=== PATIENT | male | born 1965 | race Caucasian/White ===

== ENCOUNTER 2017-03-29 14:26 | Emergency (ER) | payer SELFPAY ==
[2017-03-29] MEDS ORDERED: Nicotine GUM* 2 MG PO PRN (16:07)
[2017-03-29 16:14] LABS: Hematocrit 45 % (42-52); Hemoglobin 15.3 g/dl (14.0-18.0); Mean Corpuscular HGB Conc 34 g/dl (31-36); Mean Corpuscular Hemoglobin 34 pg (27-31); Mean Corpuscular Volume 99 fL (80-94); Mean Platelet Volume 7 um3 (7.4-10.4); Red Blood Count 4.55 10^6/ul (4.0-5.4); Red Cell Distribution Width 14 % (10.5-15)
[2017-03-29] MEDS ORDERED: Nicotine GUM* 2 MG ONE (16:16)
[2017-03-29 16:40] LABS: Urine Bilirubin Negative (Negative); Urine Glucose Negative (Negative); Urine Nitrite Negative (Negative)
[2017-03-29 16:43] LABS: ALT 50 U/L (7-52); AST 101 U/L (13-39); Albumin 4.5 g/dL (3.2-5.2); Alkaline Phosphatase 51 U/L (34-104); Anion Gap 7 mmol/L (2-11); BUN/Creatinine Ratio 8.5 (8-20); Blood Urea Nitrogen 5 mg/dL (6-24); CO2 Carbon Dioxide 27 mmol/L (22-32); Calcium 9.3 mg/dL (8.6-10.3); Chloride 106 mmol/L (101-111); EGFR African American 187.8 (>60); Globulin 3.9 g/dL (2-4); Glucose 98 mg/dL (70-100); Magnesium 2.2 mg/dL (1.9-2.7); Sodium 140 mmol/L (133-145); Total Protein 8.4 g/dL (6.4-8.9)
[2017-03-29 16:44] LABS: Acetaminophen < 15 mcg/mL; Salicylate < 2.50 mg/dL (<30)
[2017-03-29 16:44] LABS: Benzodiazepine Urine Screen None Detected (None Detect)
[2017-03-29 16:47] LABS: Alcohol 463 mg/dL (<10)
[2017-03-29] MEDS ORDERED: chlordiazePOXIDE CAP* 25 MG PO ONE (17:18)
--- NOTE | 2017-03-29 19:22 | ED ---
Substance Abuse/Use - HPI Summary HPI Summary: Patient presents to the with family. He is requesting a detox. Patient is a long-time alcoholic and last day he has NOT had alcohol was over 1 year ago. Drinks more than 12 pack per night. He arrives with bruising to the left jain and conjunctival injection of the left eye. He is also noting pain in his left ribs but is unsure if he fell. He does not remember many days and states that he is confused often. Notes to confusion and agitation at baseline. He has tried to previously quit alcohol and began to have some DT's as well as shakiness and worsening agitation. He was at that time brought into the ED and given a medication. He does not recall the medication. He used it for one day and began to drink again shortly after. He is requesting help and is wanting to go into a rehab [facility]. Good support of family. He denies any physical pain besides the left ribs. Denies drug use. Denies SI/HI. - History Of Current Complaint Chief Complaint: EDDetoxRequest Stated Complaint: DETOX Time Seen by Provider: 03/29/17 15:01 Hx Obtained From: Patient Overdose Characteristics: Oral Timing Of Abuse: Daily Severity Initially: Moderate Severity Currently: Moderate Associated Signs And Symptoms: Confused, Intentional Ingestion Related Hx: Drug/Alcohol Last Used @ - 1 hour prior to arrival, Prior Drug Abuse Counseling/Admission - Risk Factor(s) Completed Suicide Risk Factors: Male, [place] - Allergies/Home Medications Allergies/Adverse Reactions: Allergies Allergy/AdvReac Type Severity Reaction Status Date / Time No Known Allergies Allergy Verified 06/07/14 21:18 PMH/Surg Hx/FS Hx/Imm Hx Previously Healthy: Yes Endocrine/Hematology History: Denies: Hx Diabetes Cardiovascular History: Denies: Hx Congestive Heart Failure, Hx Hypertension History: Reports: Hx Renal Disease - hx right kidney cyst - Surgical History Surgery Procedure, Year, and Place: ABD HERNIA REPAIR - Immunization History Hx Pertussis Vaccination: No Immunizations Up to Date: Unable to Obtain/Confirm Infectious Disease History: No Infectious Disease History: Denies: Traveled Outside the [place] in Last 30 Days - Social History Occupation: Unemployed Lives: Alone Alcohol Use: None Alcohol Amount: 12 pack a day "at least" and hard alcohol "occassionally" Hx Substance Use: Yes Substance Use Type: Reports: Marijuana Hx Tobacco Use: Yes Smoking Status (MU): Heavy Every Day Tobacco Smoker Review of Systems Constitutional: Negative Eyes: Negative Cardiovascular: Negative Respiratory: Negative Genitourinary: Negative Positive: no symptoms reported, see HPI Musculoskeletal: Negative Positive: Slurred Speech Psychological: Normal All Other Systems Reviewed And Are Negative: Yes Physical Exam Triage Information Reviewed: Yes Vital Signs On Initial Exam: Initial Vitals BP 138/94 03/29/17 14:58 Vital Signs Reviewed: Yes Appearance: Positive: Well-Appearing, Well-Nourished Skin: Positive: Warm, Skin Color Reflects Adequate Perfusion Head/Face: Positive: Normal Head/Face Inspection Eyes: Positive: EOMI, SANTOS, Conjunctiva Clear Neck: Positive: Supple, No Lymphadenopathy Respiratory/Lung Sounds: Positive: Clear to Auscultation, Breath Sounds Present Musculoskeletal: Positive: Normal, Strength/ROM Intact Neurological: Positive: Alert, Oriented to Person Place, Time, Slurred Speech Psychiatric: Positive: Normal AVPU Assessment: Alert - [place] Coma Scale Coma Scale Total: 15 Diagnostics - Vital Signs Vital Signs Temp Pulse Resp BP Pulse Ox 03/29/17 18:30 115 124/85 97 03/29/17 18:00 98 124/82 97 03/29/17 17:47 16 03/29/17 17:30 108/73 03/29/17 17:28 125 96 03/29/17 17:00 98 106/71 95 03/29/17 16:30 94 116/81 95 03/29/17 16:02 98 94 03/29/17 16:00 119/106 03/29/17 15:56 95 95 03/29/17 15:30 93 122/85 93 03/29/17 15:00 104 96 03/29/17 14:59 98.4 F 110 16 138/94 97 03/29/17 14:58 138/94 - Laboratory Lab Results: Lab Results 03/29/17 03/29/17 03/29/17 Range/Units 15:22 15:22 16:00 WBC (3.5-10.8) 10^3/ul RBC (4.0-5.4) 10^6/ul Hgb (14.0-18.0) g/dl Hct (42-52) % MCV (80-94) fL MCH (27-31) pg MCHC (31-36) g/dl RDW (10.5-15) % Plt Count (150-450) 10^3/ul MPV (7.4-10.4) um3 Neut % (Auto) (38-83) % Lymph % (Auto) (25-47) % Henry % (Auto) (1-9) % Eos % (Auto) (0-6) % Baso % (Auto) (0-2) % Absolute Neuts (auto) (1.5-7.7) 10^3/ul Absolute Lymphs (auto) (1.0-4.8) 10^3/ul Absolute Monos (auto) (0-0.8) 10^3/ul Absolute Eos (auto) (0-0.6) 10^3/ul Absolute Basos (auto) (0-0.2) 10^3/ul Absolute Nucleated RBC 10^3/ul Nucleated RBC % Sodium 140 (133-145) mmol/L Potassium 4.0 (3.5-5.0) mmol/L Chloride 106 (101-111) mmol/L Carbon Dioxide 27 (22-32) mmol/L Anion Gap 7 (2-11) mmol/L BUN 5 L (6-24) mg/dL Creatinine 0.59 L (0.67-1.17) mg/dL Est GFR ( Amer) 187.8 (>60) Est GFR (Non-Af Amer) 146.0 (>60) BUN/Creatinine Ratio 8.5 (8-20) Glucose 98 (70-100) mg/dL Lactic Acid (0.5-2.0) mmol/L Calcium 9.3 (8.6-10.3) mg/dL Magnesium 2.2 (1.9-2.7) mg/dL Total Bilirubin 0.40 (0.2-1.0) mg/dL AST 101 H (13-39) U/L ALT 50 (7-52) U/L Alkaline Phosphatase 51 (34-104) U/L Troponin I 0.00 (<0.04) ng/mL Total Protein 8.4 (6.4-8.9) g/dL Albumin 4.5 (3.2-5.2) g/dL Globulin 3.9 (2-4) g/dL Albumin/Globulin Ratio 1.2 (1-3) Urine Color Colorless Urine Appearance Clear Urine pH 7.0 (5-9) Ur Specific [place] 1.002 L (1.010-1.030) Urine Protein Negative (Negative) Urine Ketones Negative (Negative) Urine Blood Negative (Negative) Urine Nitrate Negative (Negative) Urine Bilirubin Negative (Negative) Urine Urobilinogen Negative (Negative) Ur Leukocyte Esterase Negative (Negative) Urine Glucose Negative (Negative) Salicylates < 2.50 (<30) mg/dL Urine Opiates Screen None detected (None Detect) Acetaminophen < 15 mcg/mL Ur Barbiturates Screen None detected (None Detect) Ur Phencyclidine Scrn None detected (None Detect) Ur Amphetamines Screen None detected (None Detect) U Benzodiazepines Scrn None detected (None Detect) Urine Cocaine Screen None detected (None Detect) U Cannabinoids Screen None detected (None Detect) Serum Alcohol 463 H* (<10) mg/dL 03/29/17 03/29/17 Range/Units 16:00 16:00 WBC 4.0 (3.5-10.8) 10^3/ul RBC 4.55 (4.0-5.4) 10^6/ul Hgb 15.3 (14.0-18.0) g/dl Hct 45 (42-52) % MCV 99 H (80-94) fL MCH 34 H (27-31) pg MCHC 34 (31-36) g/dl RDW 14 (10.5-15) % Plt Count 100 L (150-450) 10^3/ul MPV 7 L (7.4-10.4) um3 Neut % (Auto) 45.7 (38-83) % Lymph % (Auto) 37.1 (25-47) % Henry % (Auto) 13.3 H (1-9) % Eos % (Auto) 0.8 (0-6) % Baso % (Auto) 3.1 H (0-2) % Absolute Neuts (auto) 1.8 (1.5-7.7) 10^3/ul Absolute Lymphs (auto) 1.5 (1.0-4.8) 10^3/ul Absolute Monos (auto) 0.5 (0-0.8) 10^3/ul Absolute Eos (auto) 0 (0-0.6) 10^3/ul Absolute Basos (auto) 0.1 (0-0.2) 10^3/ul Absolute Nucleated RBC 0 10^3/ul Nucleated RBC % 0.1 Sodium (133-145) mmol/L Potassium (3.5-5.0) mmol/L Chloride (101-111) mmol/L Carbon Dioxide (22-32) mmol/L Anion Gap (2-11) mmol/L BUN (6-24) mg/dL Creatinine (0.67-1.17) mg/dL Est GFR ( Amer) (>60) Est GFR (Non-Af Amer) (>60) BUN/Creatinine Ratio (8-20) Glucose (70-100) mg/dL Lactic Acid 1.9 (0.5-2.0) mmol/L Calcium (8.6-10.3) mg/dL Magnesium (1.9-2.7) mg/dL Total Bilirubin (0.2-1.0) mg/dL AST (13-39) U/L ALT (7-52) U/L Alkaline Phosphatase (34-104) U/L Troponin I (<0.04) ng/mL Total Protein (6.4-8.9) g/dL Albumin (3.2-5.2) g/dL Globulin (2-4) g/dL Albumin/Globulin Ratio (1-3) Urine Color Urine Appearance Urine pH (5-9) Ur Specific [place] (1.010-1.030) Urine Protein (Negative) Urine Ketones (Negative) Urine Blood (Negative) Urine Nitrate (Negative) Urine Bilirubin (Negative) Urine Urobilinogen (Negative) Ur Leukocyte Esterase (Negative) Urine Glucose (Negative) Salicylates (<30) mg/dL Urine Opiates Screen (None Detect) Acetaminophen mcg/mL Ur Barbiturates Screen (None Detect) Ur Phencyclidine Scrn (None Detect) Ur Amphetamines Screen (None Detect) U Benzodiazepines Scrn (None Detect) Urine Cocaine Screen (None Detect) U Cannabinoids Screen (None Detect) Serum Alcohol (<10) mg/dL Result Diagrams: 03/29/17 16:00 03/29/17 16:00 Lab Statement: Any lab studies that have been ordered have been reviewed, and results considered in the medical decision making process. Course/Dx - Course Course Of Treatment: Oriented to person, place and time. CIWA is 8 and does not meet criteria for admission at this time. Spoke with attending Dr. Nelson who suggested librium (up to 300mg daily) for WD symptoms. Alcohol 469. He is not having any symptoms at this time of WD. Information given for treatment facilities and patient agrees to go with family tonight and try to obtain a bed tomorrrow. He is given librium as a rx - but family is to dispense the medication. Discussed treatment options, and unfortunately, we are unable to keep someone for detox if they are not experiencing dangerous symptoms such as DT's, etc. Likely to have WD symptoms in 48-72 hours which would be classified as severe. He is encouraged to return if symptoms worsen and are not improved with Librium. Discussed care with family and family and patient voices no concerns. - Diagnoses Differential Diagnosis/HQI/PQRI: Positive: Alcohol Abuse, Alcohol Withdrawal, Delirium Tremens Provider Diagnoses: Alcohol abuse Discharge - Discharge Plan Condition: Stable Disposition: HOME Prescriptions: [email or web address] CAP* [Librium CAP*] 50 mg PO Q4H #36 cap MDD 12 Patient Education Materials: Abuse of Alcohol (ED), Acute Delirium (ED), Alcohol Withdrawal (ED) Referrals: No Primary Care Phys,NOPCP [Primary Care Provider] - Additional Instructions: [facility] * Address: [address] [place] [address] * * [facility] Address: [address] [place] [id number] Call around for available beds. Go to the first available Librium 50mg up to 6 times daily for DT, shakes or agitation. Take only if you are experiencing these symptoms and only a family member should dispense the medication
[2017-03-29 19:25] VITALS: BP 129/88
== END 2017-03-29 19:23 | disposition home or self-care (01) ==
LOC: ED 14:26
DX: F10.10 Alcohol abuse, uncomplicated (principal); R47.81 Slurred speech; F17.210 Nicotine dependence, cigarettes, uncomplicated
CPT/HCPCS: 36415; 80053; 80307; 80320; 80329; 81003; 83605; 83735; 84484; 85025; 99285; A9270-GY; G0480